=== PATIENT | female | born 1965 | race Caucasian/White ===

== ENCOUNTER 2022-05-18 08:11 | Inpatient (IN) | payer OTHER ==
[~2022-05-18] VITALS: Ht 175.3 cm; Wt 93.0 kg
[2022-05-18 08:31] VITALS: BP_SYST 104
[2022-05-18] MEDS ORDERED: PIPERACILLIN/TAZO 3.375 GM in NS 50 ML IV ONE (09:30)
[2022-05-18] MEDS ORDERED: NACL 0.9% 1,000 ML IV ONE (09:30)
[2022-05-18] MEDS ORDERED: LIP10 PO (09:35)
[2022-05-18] MEDS ORDERED: KETO10TA2 PO (09:35)
[2022-05-18] MEDS ORDERED: [UNRECOGNIZED DRUG - CODE] PO (09:35)
[2022-05-18] MEDS ORDERED: TRAM50TA2 PO (09:35)
[2022-05-18] MEDS ORDERED: CLIN-142 PO (09:35)
[2022-05-18] MEDS ORDERED: LAMO200T2 PO (09:35)
[2022-05-18 09:53] LABS: EOSINOPHILS # (AUTO) 0.1 K/uL (0.0-0.4); EOSINOPHILS % (AUTO) 3.6 % (0.0-4.0); HEMATOCRIT 33.9 % (36-48); HEMOGLOBIN 11.3 g/dL (12.0-16.0); LYMPHOCYTES # (AUTO) 0.9 K/uL (1.0-5.5); LYMPHOCYTES % (AUTO) 24.8 % (20.5-51.5); MEAN CORPUSCULAR HEMOGLOBIN 30 pg (27-31); MEAN CORPUSCULAR HGB CONC 33 % (32-36); MEAN CORPUSCULAR VOLUME 90 fL (79.0-98.0); MONOCYTES # (AUTO) 0.6 K/uL (0.0-1.0); MONOCYTES % (AUTO) 15.9 % (1.7-9.3); NEUTROPHILS # (AUTO) 1.9 K/uL (1.8-7.7); NEUTROPHILS % (AUTO) 54.7 % (40.0-70.0); PLATELET COUNT (AUTO) 259 K/uL (130-430); RED BLOOD CELL COUNT(AUTO) 3.77 MIL/uL (4.2-6.2); RED CELL DISTRIBUTION WIDTH 14.1 % (9.0-15.0); WHITE BLOOD COUNT (AUTO) 3.5 K/uL (4.8-10.8)
[2022-05-18] MEDS ORDERED: PIPERACILLIN/TAZOBACTAM 3.375 GM/VIAL (ZOSYN) IV ONE (09:54)
[2022-05-18 10:09] LABS: CALCIUM 8.9 mg/dL (8.4-11.0); CREATININE 0.75 mg/dL (0.55-1.30)
[2022-05-18 10:13] LABS: ALBUMIN 2.5 g/dL (3.4-4.8); TOTAL BILIRUBIN 0.3 mg/dL (0.0-1.0)
[2022-05-18 11:33] VITALS: BP_SYST 110
[2022-05-18 12:00] VITALS: BP_SYST 121
[2022-05-18] MEDS ORDERED: traMADol HCL HCL 50 MG TABLET (ULTRAM) PO PRN (13:15)
[2022-05-18] MEDS ORDERED: KETOPROFEN PO SCH (13:15)
[2022-05-18] MEDS ORDERED: KETOROLAC TROMETHAMINE 10 MG TABLET (TORADOL) PO PRN (13:15)
[2022-05-18] MEDS ORDERED: NALOXONE HCL 0.4 MG/ML AMP (NARCAN) IVP PRN (13:30)
[2022-05-18] MEDS ORDERED: ONDANSETRON HCL 4 MG/2 ML VIAL IVP PRN (13:30)
[2022-05-18] MEDS ORDERED: LACTOBACILLUS RHAMNOSUS GG 1 CAP CAPSULE PO ONE (13:45)
[2022-05-18] MEDS ORDERED: ENOXAPARIN SODIUM 40 MG/0.4 ML SYRINGE SUBCUT ONE (13:45)
[2022-05-18] MEDS ORDERED: FAMOTIDINE 20 MG TABLET PO ONE (13:45)
[2022-05-18] MEDS: MORPHINE 4 MG INJ. 4 MG/ML VIAL IVP PRN ×3 (15:12→23:40)
[2022-05-18] MEDS: CLINDAMYCIN HCL 150 MG CAPSULE PO SCH ×2 (15:35→21:06)
[2022-05-18 16:00] VITALS: BP_SYST 117
[2022-05-18] MEDS ORDERED: TEMAZEPAM 15 MG CAPSULE PO PRN (17:00)
[2022-05-18] MEDS: AMPICILLIN SODIUM/SULBACTAM NA 3 GM in NS 100 ML IV SCH ×2 (17:53→23:40)
[2022-05-18] MEDS ORDERED: NICOTINE 7 MG/24 HR PATCH.TD24 TD ONE (18:00)
[2022-05-18 19:00] VITALS: BP_SYST 112
[2022-05-18 20:00] VITALS: BP_SYST 116
[2022-05-18] MEDS: ACETAMINOPHEN 325 MG TABLET PO PRN (21:05)
[2022-05-18] MEDS: FAMOTIDINE 20 MG TABLET PO SCH (21:06)
[2022-05-18] MEDS: ENOXAPARIN SODIUM 40 MG/0.4 ML SYRINGE SUBCUT SCH (21:06)
[2022-05-18] MEDS: LACTOBACILLUS RHAMNOSUS GG 1 CAP CAPSULE PO SCH (21:06)
[2022-05-19] VITALS: BP_SYST 126
[2022-05-19 04:00] VITALS: BP_SYST 124
[2022-05-19] MEDS: MORPHINE 4 MG INJ. 4 MG/ML VIAL IVP PRN ×3 (04:17→23:30)
[2022-05-19] MEDS: AMPICILLIN SODIUM/SULBACTAM NA 3 GM in NS 100 ML IV SCH ×4 (05:03→23:33)
[2022-05-19 06:20] LABS: BASOPHILS % (AUTO) 0.6 % (0.0-2.0); EOSINOPHILS # (AUTO) 0.1 K/uL (0.0-0.4); EOSINOPHILS % (AUTO) 1.8 % (0.0-4.0); HEMATOCRIT 33.1 % (36-48); HEMOGLOBIN 11.2 g/dL (12.0-16.0); LYMPHOCYTES # (AUTO) 0.6 K/uL (1.0-5.5); LYMPHOCYTES % (AUTO) 18.4 % (20.5-51.5); MEAN CORPUSCULAR HEMOGLOBIN 30 pg (27-31); MEAN CORPUSCULAR HGB CONC 34 % (32-36); MEAN CORPUSCULAR VOLUME 90 fL (79.0-98.0); MONOCYTES # (AUTO) 0.5 K/uL (0.0-1.0); MONOCYTES % (AUTO) 16.5 % (1.7-9.3); NEUTROPHILS % (AUTO) 62.7 % (40.0-70.0); PLATELET COUNT (AUTO) 267 K/uL (130-430); RED CELL DISTRIBUTION WIDTH 14.4 % (9.0-15.0); WHITE BLOOD COUNT (AUTO) 3.2 K/uL (4.8-10.8)
[2022-05-19 06:56] LABS: ALBUMIN 2.4 g/dL (3.4-4.8); CALCIUM 8.4 mg/dL (8.4-11.0); CREATININE 0.99 mg/dL (0.55-1.30)
[2022-05-19 08:00] VITALS: BP_SYST 100
[2022-05-19] MEDS: LACTOBACILLUS RHAMNOSUS GG 1 CAP CAPSULE PO SCH ×2 (08:14→20:53)
[2022-05-19] MEDS: FAMOTIDINE 20 MG TABLET PO SCH ×2 (08:15→20:53)
[2022-05-19] MEDS: LamoTRIgine 100 MG TABLET PO SCH (08:16)
[2022-05-19] MEDS: ATORVASTATIN 10 MG TABLET PO SCH (08:16)
[2022-05-19] MEDS: ACETAMINOPHEN 325 MG TABLET PO PRN ×2 (08:16→23:40)
[2022-05-19] MEDS: CLINDAMYCIN HCL 150 MG CAPSULE PO SCH ×3 (08:16→20:53)
[2022-05-19] MEDS: NICOTINE 7 MG/24 HR PATCH.TD24 TD SCH (08:16)
[2022-05-19 08:22] LABS: TOTAL BILIRUBIN 0.5 mg/dL (0.0-1.0)
[2022-05-19 11:20] VITALS: BP_SYST 106
[2022-05-19] MEDS ORDERED: MULTIVITS,CA,MINERALS/IRON/FA 1 TABLET PO ONE (12:00)
[2022-05-19] MEDS ORDERED: CHOLECALCIFEROL (VITAMIN D3) 2,000 UNIT TABLET PO ONE (12:00)
[2022-05-19 14:35] LABS: BILIRUBIN,URINE NEGATIVE (NEGATIVE); BLOOD, URINE NEGATIVE (NEGATIVE); COLOR,URINE YELLOW (YELLOW); GLUCOSE,URINE NEGATIVE (NEGATIVE); KETONES,URINE NEGATIVE (NEGATIVE); LEUKOCYTE ESTERASE ,URINE NEGATIVE (NEGATIVE); NITRITE, URINE NEGATIVE (NEGATIVE); PROTEIN URINE NEGATIVE (NEGATIVE); UROBILINOGEN,URINE 0.2 (0.2-1.0)
[2022-05-19 14:36] LABS: CLARITY/URINE CLEAR (CLEAR)
[2022-05-19 15:15] VITALS: BP_SYST 108
[2022-05-19 20:00] VITALS: BP_SYST 116
[2022-05-19] MEDS: ENOXAPARIN SODIUM 40 MG/0.4 ML SYRINGE SUBCUT SCH (20:54)
[2022-05-20] VITALS: BP_SYST 100
[2022-05-20] MEDS ORDERED: VANCOMYCIN HCL 1 GM/NS PREMIX 250 ML IV ONE (05:00)
[2022-05-20] MEDS ORDERED: PIPERACILLIN/TAZOBACTAM 4.5 GM/VIAL (ZOSYN) IV ONE (05:46)
[2022-05-20] MEDS ORDERED: VANCOMYCIN HCL 1000 MG/VIAL IV ONE (05:47)
[2022-05-20] MEDS: PIPERACILLIN/TAZO 4.5GM/DEX-IS 100 ML IV SCH ×3 (06:00→21:16)
[2022-05-20 07:10] LABS: BASOPHILS % (AUTO) 0.7 % (0.0-2.0); EOSINOPHILS % (AUTO) 1.2 % (0.0-4.0); HEMATOCRIT 30.6 % (36-48); HEMOGLOBIN 10.5 g/dL (12.0-16.0); LYMPHOCYTES # (AUTO) 0.5 K/uL (1.0-5.5); LYMPHOCYTES % (AUTO) 18.1 % (20.5-51.5); MEAN CORPUSCULAR HEMOGLOBIN 30 pg (27-31); MEAN CORPUSCULAR HGB CONC 34 % (32-36); MEAN CORPUSCULAR VOLUME 89 fL (79.0-98.0); MONOCYTES # (AUTO) 0.6 K/uL (0.0-1.0); MONOCYTES % (AUTO) 22.6 % (1.7-9.3); NEUTROPHILS # (AUTO) 1.6 K/uL (1.8-7.7); NEUTROPHILS % (AUTO) 57.4 % (40.0-70.0); PLATELET COUNT (AUTO) 240 K/uL (130-430); RED BLOOD CELL COUNT(AUTO) 3.45 MIL/uL (4.2-6.2); WHITE BLOOD COUNT (AUTO) 2.7 K/uL (4.8-10.8)
[2022-05-20] MEDS: ACETAMINOPHEN 325 MG TABLET PO PRN (07:15)
[2022-05-20 07:48] LABS: ALBUMIN 2.2 g/dL (3.4-4.8); CALCIUM 8.3 mg/dL (8.4-11.0); CREATININE 0.85 mg/dL (0.55-1.30); TOTAL BILIRUBIN 0.3 mg/dL (0.0-1.0)
[2022-05-20 08:00] VITALS: BP_SYST 109
[2022-05-20] MEDS: CHOLECALCIFEROL (VITAMIN D3) 2,000 UNIT TABLET PO SCH (08:21)
[2022-05-20] MEDS: LamoTRIgine 100 MG TABLET PO SCH (08:21)
[2022-05-20] MEDS: LACTOBACILLUS RHAMNOSUS GG 1 CAP CAPSULE PO SCH ×2 (08:21→21:17)
[2022-05-20] MEDS: CLINDAMYCIN HCL 150 MG CAPSULE PO SCH ×3 (08:21→21:16)
[2022-05-20] MEDS: MULTIVITS,CA,MINERALS/IRON/FA 1 TABLET PO SCH (08:22)
[2022-05-20] MEDS: MORPHINE 4 MG INJ. 4 MG/ML VIAL IVP PRN ×2 (08:22→21:22)
[2022-05-20] MEDS: FAMOTIDINE 20 MG TABLET PO SCH ×2 (08:23→21:16)
[2022-05-20] MEDS: ATORVASTATIN 10 MG TABLET PO SCH (08:23)
[2022-05-20] MEDS: NICOTINE 7 MG/24 HR PATCH.TD24 TD SCH (09:14)
[2022-05-20 12:00] VITALS: BP_SYST 91
[2022-05-20] MEDS: traMADol HCL HCL 50 MG TABLET (ULTRAM) PO PRN ×2 (13:28→23:24)
[2022-05-20 15:40] VITALS: BP_SYST 100
[2022-05-20] MEDS: VANCOMYCIN HCL 1,250 MG in NS 250 ML IV SCH (16:57)
[2022-05-20 20:00] VITALS: BP_SYST 97
[2022-05-20 21:18] VITALS: BP_SYST 103
[2022-05-20] MEDS: ENOXAPARIN SODIUM 40 MG/0.4 ML SYRINGE SUBCUT SCH (21:22)
[2022-05-21] VITALS: BP_SYST 103
[2022-05-21] MEDS: PIPERACILLIN/TAZO 4.5GM/DEX-IS 100 ML IV SCH ×3 (06:13→22:27)
[2022-05-21] MEDS: VANCOMYCIN HCL 1,250 MG in NS 250 ML IV SCH ×2 (06:14→17:33)
[2022-05-21 08:00] VITALS: BP_SYST 94
[2022-05-21 08:06] LABS: BASOPHILS % (AUTO) 0.5 % (0.0-2.0); EOSINOPHILS # (AUTO) 0.1 K/uL (0.0-0.4); EOSINOPHILS % (AUTO) 3.1 % (0.0-4.0); HEMATOCRIT 29.6 % (36-48); HEMOGLOBIN 10.2 g/dL (12.0-16.0); LYMPHOCYTES # (AUTO) 0.9 K/uL (1.0-5.5); LYMPHOCYTES % (AUTO) 29.9 % (20.5-51.5); MEAN CORPUSCULAR HEMOGLOBIN 30 pg (27-31); MEAN CORPUSCULAR HGB CONC 34 % (32-36); MEAN CORPUSCULAR VOLUME 88 fL (79.0-98.0); MONOCYTES # (AUTO) 0.5 K/uL (0.0-1.0); NEUTROPHILS # (AUTO) 1.5 K/uL (1.8-7.7); NEUTROPHILS % (AUTO) 50.5 % (40.0-70.0); PLATELET COUNT (AUTO) 243 K/uL (130-430); RED BLOOD CELL COUNT(AUTO) 3.37 MIL/uL (4.2-6.2); RED CELL DISTRIBUTION WIDTH 14.3 % (9.0-15.0)
[2022-05-21] MEDS: ATORVASTATIN 10 MG TABLET PO SCH (09:46)
[2022-05-21] MEDS: CHOLECALCIFEROL (VITAMIN D3) 2,000 UNIT TABLET PO SCH (09:46)
[2022-05-21] MEDS: NICOTINE 7 MG/24 HR PATCH.TD24 TD SCH (09:46)
[2022-05-21] MEDS: CLINDAMYCIN HCL 150 MG CAPSULE PO SCH ×3 (09:46→22:27)
[2022-05-21] MEDS: MULTIVITS,CA,MINERALS/IRON/FA 1 TABLET PO SCH (09:46)
[2022-05-21] MEDS: FAMOTIDINE 20 MG TABLET PO SCH ×2 (09:46→22:28)
[2022-05-21] MEDS: LamoTRIgine 100 MG TABLET PO SCH (09:46)
[2022-05-21] MEDS: LACTOBACILLUS RHAMNOSUS GG 1 CAP CAPSULE PO SCH ×2 (09:48→22:27)
[2022-05-21 12:00] VITALS: BP_SYST 106
[2022-05-21 12:47] LABS: ALBUMIN 2.1 g/dL (3.4-4.8); CALCIUM 7.8 mg/dL (8.4-11.0); CREATININE 1.04 mg/dL (0.55-1.30); TOTAL BILIRUBIN 0.2 mg/dL (0.0-1.0)
[2022-05-21] MEDS ORDERED: LACTULOSE 20 GM/30 ML UDC PO ONE (13:00)
[2022-05-21] MEDS ORDERED: DOCUSATE SODIUM 250 MG CAPSULE PO ONE (13:00)
[2022-05-21] MEDS ORDERED: BISACODYL 5 MG TABLET.DR (DULCOLAX) PO ONE (13:15)
[2022-05-21] MEDS ORDERED: BISACODYL 10 MG/SUPPOSITORY RC PRN (13:15)
[2022-05-21] MEDS ORDERED: BISACODYL 5 MG TABLET.DR (DULCOLAX) PO PRN (13:15)
[2022-05-21] MEDS ORDERED: MUPIROCIN 2% TOPICAL OINTMENT 22 GM TP ONE (13:30)
[2022-05-21 15:59] VITALS: BP_SYST 98
[2022-05-21] MEDS: traMADol HCL HCL 50 MG TABLET (ULTRAM) PO PRN (18:34)
[2022-05-21 20:00] VITALS: BP_SYST 87
[2022-05-21] MEDS: DOCUSATE SODIUM 250 MG CAPSULE PO SCH (21:00)
[2022-05-21] MEDS: ENOXAPARIN SODIUM 40 MG/0.4 ML SYRINGE SUBCUT SCH (22:28)
[2022-05-21] MEDS: MUPIROCIN 2% TOPICAL OINTMENT 22 GM TP SCH (22:29)
[2022-05-22 01:01] VITALS: BP_SYST 95
[2022-05-22] MEDS: VANCOMYCIN HCL 1,250 MG in NS 250 ML IV SCH ×2 (05:13→18:37)
[2022-05-22] MEDS: PIPERACILLIN/TAZO 4.5GM/DEX-IS 100 ML IV SCH ×3 (05:13→21:49)
[2022-05-22 05:59] LABS: BASOPHILS % (AUTO) 0.4 % (0.0-2.0); EOSINOPHILS # (AUTO) 0.1 K/uL (0.0-0.4); EOSINOPHILS % (AUTO) 3.7 % (0.0-4.0); HEMATOCRIT 29.4 % (36-48); LYMPHOCYTES # (AUTO) 1.1 K/uL (1.0-5.5); LYMPHOCYTES % (AUTO) 31.2 % (20.5-51.5); MEAN CORPUSCULAR HEMOGLOBIN 30 pg (27-31); MEAN CORPUSCULAR HGB CONC 34 % (32-36); MEAN CORPUSCULAR VOLUME 88 fL (79.0-98.0); MONOCYTES # (AUTO) 0.4 K/uL (0.0-1.0); NEUTROPHILS # (AUTO) 1.8 K/uL (1.8-7.7); NEUTROPHILS % (AUTO) 52.7 % (40.0-70.0); PLATELET COUNT (AUTO) 242 K/uL (130-430); RED BLOOD CELL COUNT(AUTO) 3.35 MIL/uL (4.2-6.2); RED CELL DISTRIBUTION WIDTH 14.5 % (9.0-15.0); WHITE BLOOD COUNT (AUTO) 3.4 K/uL (4.8-10.8)
[2022-05-22 06:19] LABS: CALCIUM 7.6 mg/dL (8.4-11.0); TOTAL BILIRUBIN 0.2 mg/dL (0.0-1.0)
[2022-05-22 08:00] VITALS: BP_SYST 103
[2022-05-22] MEDS: DOCUSATE SODIUM 250 MG CAPSULE PO SCH ×2 (09:00→21:00)
[2022-05-22] MEDS: MUPIROCIN 2% TOPICAL OINTMENT 22 GM TP SCH ×2 (09:00→22:17)
[2022-05-22] MEDS: LACTULOSE 20 GM/30 ML UDC PO SCH (09:00)
[2022-05-22 12:00] VITALS: BP_SYST 101
[2022-05-22] MEDS: NICOTINE 7 MG/24 HR PATCH.TD24 TD SCH (12:37)
[2022-05-22] MEDS: LamoTRIgine 100 MG TABLET PO SCH (12:37)
[2022-05-22] MEDS: LACTOBACILLUS RHAMNOSUS GG 1 CAP CAPSULE PO SCH ×2 (12:37→21:58)
[2022-05-22] MEDS: CLINDAMYCIN HCL 150 MG CAPSULE PO SCH (12:37)
[2022-05-22] MEDS: ATORVASTATIN 10 MG TABLET PO SCH (12:37)
[2022-05-22] MEDS: FAMOTIDINE 20 MG TABLET PO SCH ×2 (12:37→21:58)
[2022-05-22] MEDS: MULTIVITS,CA,MINERALS/IRON/FA 1 TABLET PO SCH (12:37)
[2022-05-22] MEDS: CHOLECALCIFEROL (VITAMIN D3) 2,000 UNIT TABLET PO SCH (12:37)
[2022-05-22] MEDS: MORPHINE 4 MG INJ. 4 MG/ML VIAL IVP PRN ×2 (14:28→22:34)
[2022-05-22] MEDS ORDERED: POTASSIUM CHLORIDE 20 MEQ/PKT PACKET PO ONE (15:15)
[2022-05-22 16:00] VITALS: BP_SYST 86
[2022-05-22 20:00] VITALS: BP_SYST 103
[2022-05-22] MEDS: ENOXAPARIN SODIUM 40 MG/0.4 ML SYRINGE SUBCUT SCH (22:17)
[2022-05-23] VITALS: BP_SYST 101
[2022-05-23] MEDS: VANCOMYCIN HCL 1,250 MG in NS 250 ML IV SCH ×2 (05:10→18:05)
[2022-05-23] MEDS: PIPERACILLIN/TAZO 4.5GM/DEX-IS 100 ML IV SCH ×3 (05:11→21:53)
[2022-05-23 06:21] LABS: BASOPHILS % (AUTO) 0.4 % (0.0-2.0); EOSINOPHILS # (AUTO) 0.2 K/uL (0.0-0.4); EOSINOPHILS % (AUTO) 3.2 % (0.0-4.0); HEMOGLOBIN 10.3 g/dL (12.0-16.0); LYMPHOCYTES # (AUTO) 1.3 K/uL (1.0-5.5); LYMPHOCYTES % (AUTO) 25.5 % (20.5-51.5); MEAN CORPUSCULAR HEMOGLOBIN 30 pg (27-31); MEAN CORPUSCULAR HGB CONC 34 % (32-36); MEAN CORPUSCULAR VOLUME 88 fL (79.0-98.0); MONOCYTES # (AUTO) 0.4 K/uL (0.0-1.0); MONOCYTES % (AUTO) 8.5 % (1.7-9.3); NEUTROPHILS # (AUTO) 3.2 K/uL (1.8-7.7); NEUTROPHILS % (AUTO) 62.4 % (40.0-70.0); PLATELET COUNT (AUTO) 256 K/uL (130-430); RED BLOOD CELL COUNT(AUTO) 3.41 MIL/uL (4.2-6.2); RED CELL DISTRIBUTION WIDTH 14.5 % (9.0-15.0); WHITE BLOOD COUNT (AUTO) 5.1 K/uL (4.8-10.8)
[2022-05-23 06:44] LABS: CALCIUM 8.3 mg/dL (8.4-11.0); CREATININE 0.87 mg/dL (0.55-1.30)
[2022-05-23 08:32] VITALS: BP_SYST 114
[2022-05-23] MEDS: MULTIVITS,CA,MINERALS/IRON/FA 1 TABLET PO SCH (09:00)
[2022-05-23] MEDS: NICOTINE 7 MG/24 HR PATCH.TD24 TD SCH (09:00)
[2022-05-23] MEDS: LACTULOSE 20 GM/30 ML UDC PO SCH (09:00)
[2022-05-23] MEDS: LACTOBACILLUS RHAMNOSUS GG 1 CAP CAPSULE PO SCH ×2 (09:00→21:53)
[2022-05-23] MEDS: ATORVASTATIN 10 MG TABLET PO SCH (09:02)
[2022-05-23] MEDS: DOCUSATE SODIUM 250 MG CAPSULE PO SCH ×2 (09:02→21:00)
[2022-05-23] MEDS: FAMOTIDINE 20 MG TABLET PO SCH ×2 (09:02→21:53)
[2022-05-23] MEDS: LamoTRIgine 100 MG TABLET PO SCH (09:03)
[2022-05-23] MEDS: POTASSIUM CHLORIDE 20 MEQ/PKT PACKET PO SCH (09:03)
[2022-05-23] MEDS: CHOLECALCIFEROL (VITAMIN D3) 2,000 UNIT TABLET PO SCH (09:04)
[2022-05-23] MEDS: MUPIROCIN 2% TOPICAL OINTMENT 22 GM TP SCH ×2 (09:05→21:54)
[2022-05-23 20:00] VITALS: BP_SYST 103
[2022-05-23] MEDS: ENOXAPARIN SODIUM 40 MG/0.4 ML SYRINGE SUBCUT SCH (21:53)
[2022-05-24] VITALS: BP_SYST 96
[2022-05-24] MEDS: VANCOMYCIN HCL 1,250 MG in NS 250 ML IV SCH (07:24)
[2022-05-24] MEDS: PIPERACILLIN/TAZO 4.5GM/DEX-IS 100 ML IV SCH ×2 (07:24→15:58)
[2022-05-24] MEDS: MORPHINE 4 MG INJ. 4 MG/ML VIAL IVP PRN (07:31)
[2022-05-24 08:54] VITALS: BP_SYST 97
[2022-05-24] MEDS: NICOTINE 7 MG/24 HR PATCH.TD24 TD SCH (09:04)
[2022-05-24] MEDS: LACTULOSE 20 GM/30 ML UDC PO SCH (09:05)
[2022-05-24] MEDS: POTASSIUM CHLORIDE 20 MEQ/PKT PACKET PO SCH (09:05)
[2022-05-24] MEDS: LACTOBACILLUS RHAMNOSUS GG 1 CAP CAPSULE PO SCH (09:06)
[2022-05-24] MEDS: MULTIVITS,CA,MINERALS/IRON/FA 1 TABLET PO SCH (09:06)
[2022-05-24] MEDS: LamoTRIgine 100 MG TABLET PO SCH (09:06)
[2022-05-24] MEDS: ATORVASTATIN 10 MG TABLET PO SCH (09:07)
[2022-05-24] MEDS: FAMOTIDINE 20 MG TABLET PO SCH (09:07)
[2022-05-24] MEDS: DOCUSATE SODIUM 250 MG CAPSULE PO SCH (09:07)
[2022-05-24] MEDS: CHOLECALCIFEROL (VITAMIN D3) 2,000 UNIT TABLET PO SCH (09:10)
[2022-05-24] MEDS: MUPIROCIN 2% TOPICAL OINTMENT 22 GM TP SCH (12:24)
[2022-05-24] MEDS ORDERED: CEPH-548 PO (16:51)
[2022-05-24] MEDS ORDERED: CLIN-142 PO ×2 (16:51→16:55)
[2022-05-24] MEDS ORDERED: LACT1CAP89 PO (16:51)
[2022-05-24] MEDS ORDERED: MULT18TA PO (16:53)
[2022-05-24 17:36] VITALS: BP_SYST 99
== END 2022-05-24 18:27 | disposition home or self-care (01) | DRG 863 ==
LOC: SED 08:11 → SMU 09:57
PROVIDERS: ADMIT Internal Medicine; ATTEND Internal Medicine
DX: T81.49XA Infection following a procedure, other surgical site, initial encounter (principal); E44.0 Moderate protein-calorie malnutrition; I96 Gangrene, not elsewhere classified; N61.0 Mastitis without abscess; Y84.8 Other medical procedures as the cause of abnormal reaction of the patient, or of later complication, without mention of misadventure at the time of the procedure; N61.1 Abscess of the breast and nipple; Z68.30 Body mass index [BMI] 30.0-30.9, adult; D64.9 Anemia, unspecified; E78.5 Hyperlipidemia, unspecified; F17.200 Nicotine dependence, unspecified, uncomplicated; Z20.822 Contact with and (suspected) exposure to COVID-19; Z98.82 Breast implant status
CPT/HCPCS: 36415; 71045; 71250-TC; 76376; 76700-TC; 80048; 80053; 80202; 81003; 82306; 83605; 83735; 85025; 87040; 87070-TC; 87075-TC; 87081; 93005; 96365; 97116-GP; 97163-GP; 99285; J0295; J1650; J2270; J2543; J3370; J7050